=== PATIENT | female | born 1995 | race Hispanic/Latino ===

== ENCOUNTER 2022-09-20 18:39 | Emergency (ER) | payer BC, OTHER ==
[~2022-09-20] VITALS: Ht 160 cm; Wt 106.6 kg
[2022-09-20 19:21] VITALS: BP 117/143
[2022-09-20] MEDS ORDERED: CIPR7.5D OT (20:46)
[2022-09-20] MEDS ORDERED: AMOX1TAB16 PO (20:46)
[2022-09-20] MEDS ORDERED: KETOROLAC 30MG VIAL (30MG/ML) ONE (20:55)
[2022-09-20] MEDS ORDERED: KETOROLAC 30MG VIAL (30MG/ML) IM ONE (21:00)
== END 2022-09-20 21:11 | disposition home or self-care (01) ==
LOC: EDH 18:39
DX: H60.92 Unspecified otitis externa, left ear (principal)
CPT/HCPCS: 99284; 96372; J1885

== ENCOUNTER 2022-09-24 09:03 | Emergency (ER) | payer BC ==
[~2022-09-24] VITALS: Ht 160 cm; Wt 106.6 kg
[~2022-09-24 09:03] MED LIST: AMOX1TAB16 PO; CIPR7.5D OT
[2022-09-24 09:07] VITALS: BP 146/101
[2022-09-24] MEDS ORDERED: LIDOCAINE HCL-MPF 1% 2ML VIAL IM SCH (10:00)
[2022-09-24] MEDS ORDERED: TETANUS/DIPHTHERIA TOXOID [ADULT] 0.5 ML VIAL IM ONE (10:00)
[2022-09-24] MEDS ORDERED: LIDOCAINE HCL-MPF 2% 5ML VIAL ONE (10:07)
[2022-09-24] MEDS ORDERED: AMOX1TAB16 PO (11:01)
[2022-09-24] MEDS ORDERED: BACI30OI6 TP (11:01)
== END 2022-09-24 11:21 | disposition home or self-care (01) ==
LOC: EDH 09:03
DX: S71.132A Puncture wound without foreign body, left thigh, initial encounter (principal); W54.0XXA Bitten by dog, initial encounter; Y93.89 Activity, other specified; Y92.89 Other specified places as the place of occurrence of the external cause; Y99.8 Other external cause status
CPT/HCPCS: 99284; 81025; 90714; 73552; 90471; 12001; J3490

== ENCOUNTER 2022-09-29 23:47 | Emergency (ER) | payer BC ==
[~2022-09-29] VITALS: Ht 160 cm; Wt 105.7 kg
[~2022-09-29 23:47] MED LIST changes: +BACI30OI6 TP
[2022-09-30] MEDS ORDERED: PRED20TA3 PO (00:13)
[2022-09-30] MEDS ORDERED: DIPH50 PO (00:13)
[2022-09-30] MEDS ORDERED: CLIN-141 PO (00:13)
[2022-09-30] MEDS ORDERED: DiphenhydrAMINE HCL 50 MG/ML VIAL IM ONE (00:30)
[2022-09-30] MEDS ORDERED: SOLU-MEDROL 125MG VIAL IM ONE (00:30)
[2022-09-30] MEDS ORDERED: EPINEPHRINE PF 1MG (1:1,000) 1 MG/ML AMP IM ONE (00:30)
[2022-09-30 01:37] VITALS: BP 138/81
== END 2022-09-30 01:49 | disposition home or self-care (01) ==
LOC: EDH 23:47
DX: T78.40XA Allergy, unspecified, initial encounter (principal); X58.XXXA Exposure to other specified factors, initial encounter
CPT/HCPCS: 99284; 96372 ×3; J1200; J2930; J0171

== ENCOUNTER → 2022-10-07 | Outpatient (CLI) | payer BC ==
[~2022-10-07] MED LIST changes: +CLIN-141 PO; +DIPH50 PO; +LIDOCAINE HCL 4% LTA SOL 4 ML VIAL TP ONE; +PRED20TA3 PO
== END | disposition home or self-care (01) ==
LOC: WHH 13:46
PROVIDERS: ATTEND Family Medicine
DX: S71.152A Open bite, left thigh, initial encounter (principal); W54.0XXA Bitten by dog, initial encounter; Y93.89 Activity, other specified; Y92.89 Other specified places as the place of occurrence of the external cause; Y99.8 Other external cause status
CPT/HCPCS: 10140; A6248; A4450